=== PATIENT | male | born 1950 | race Caucasian/White ===

== ENCOUNTER 2018-09-03 08:24 | Outpatient (CLI) | payer BC ==
[2018-09-03] MEDS ORDERED: Bupivacaine 0.25% 10 ML SDV ONE (08:31)
[2018-09-03] MEDS ORDERED: methylPREDNISolone Acetate 40 MG/ML SDV ONE (08:31)
[2018-09-03 08:55] VITALS: BP 151/74; PULSE 59
--- NOTE | 2018-09-03 18:30 | ANES ---
DATE OF SERVICE: 09/03/2018 INDICATIONS: Scott is a 68-year-old male patient referred to us by Dr. Mccullough for epidural steroid injection. Scott has already had 3 of these done with 80 mg each, so we decided this time that we would only do 40 mg to try to not to use all of his 360 too much before January when his 1 year is up. Risks and benefits were reviewed with him again. The patient verbalizes understanding and wishes to proceed with epidural steroid injection. TECHNIQUE: The patient was then sat at the edge of the bed. Betadine prep x3 to the lumbar region was done. Sterile drape was placed. 1% lidocaine skin wheal and deep was done a 17- gauge Tuohy needle was inserted at approximately the L4-5. Loss of resistance was achieved. Negative paresthesia, negative heme, and negative CSF were noted. I then proceeded to give 7 mL of sterile normal saline with 2 mL of 0.25% Sensorcaine and 1 mL of 40 mg Depo-Medrol. The Tuohy needle was then flushed and withdrawn. Sterile drape was taken down. Betadine was cleaned off his back, and a Band-Aid was applied to the puncture site for hemostasis. The patient tolerated the procedure without difficulty. Please refer to the nurse's notes for vital signs. After the appropriate amount of time, the patient will be discharged per [facility] protocol. Bunny Nogueira CRNA /[id number]
== END 2018-09-03 09:22 | disposition home or self-care (01) ==
LOC: JP.PAIN 08:24
PROVIDERS: ATTEND Family Medicine
DX: M48.061 Spinal stenosis, lumbar region without neurogenic claudication (principal)
CPT/HCPCS: 62322; J1030; J3490

== ENCOUNTER 2020-11-01 06:34 | Day surgery (SDC) | payer MEDICARE, BC ==
[2020-11-01] MEDS ORDERED: Sodium Chloride 0.9% 1,000 ML IV SCH (07:00)
[2020-11-01] MEDS ORDERED: fentaNYL 100 MCG/2 ML SDV ONE (07:20)
[2020-11-01] MEDS ORDERED: Propofol 200 MG/20 ML SDV ONE (07:20)
[2020-11-01] MEDS ORDERED: Midazolam 1 MG/ML 2 ML SDV ONE (07:20)
[2020-11-01 09:20] VITALS: BP 122/68; PULSE 70
--- NOTE | 2020-11-01 10:14 | OR ---
DATE OF PROCEDURE: 11/01/2020 SURGEON: Ishmael Abernathy MD PROCEDURE: Colonoscopy. FINDINGS: Descending colon polyp approximately 5 mm, completely removed using hot snare wire device. COMPLICATION: None. TRANSPORTATION PLANNING ENGINEER: None. RISKS: Risks, benefits, alternatives, and limitations including, but not limited to infection; bleeding; perforation; false positives; and false negatives were explained to the patient and they wished to proceed. DESCRIPTION OF PROCEDURE: The patient was placed in left lateral decubitus position. Digital rectal exam was performed without abnormality. Scope was introduced and advanced atraumatically to the ileocecal valve. A photo was taken of appendiceal orifice. Scope was brought back to the ascending, transverse, descending colon, and retroflexed. The aforementioned polyp was identified and completely removed as described above. No abnormal bleeding was noted after removal. No other abnormalities. No diverticulosis. No colitis. No old or new blood. The prep was acceptable. Approximately 90% luminal surface could be seen. Greater than 8 minutes was spent removing the scope. The patient tolerated the procedure well. Ishmael Abernathy MD /[id number]
== END 2020-11-01 09:20 | disposition home or self-care (01) ==
LOC: JP.SDS 06:34
PROVIDERS: ATTEND Surgery
DX: Z12.11 Encounter for screening for malignant neoplasm of colon (principal); D12.4 Benign neoplasm of descending colon
CPT/HCPCS: 45385; J2250; J2704; J3010; J7030

== ENCOUNTER 2024-10-16 06:28 | Day surgery (SDC) | payer MEDICARE, BC ==
[2024-10-16] MEDS: Lactated Ringers 1,000 ML IV SCH (07:05)
[2024-10-16] MEDS ORDERED: Propofol 200 MG/20 ML SDV ONE ×2 (07:09→07:37)
[2024-10-16] MEDS ORDERED: Midazolam 1 MG/ML 2 ML SDV ONE (07:10)
[2024-10-16] MEDS ORDERED: fentaNYL 100 MCG/2 ML SDV ONE (07:10)
[2024-10-16 08:49] VITALS: BP 149/72; PULSE 58
== END 2024-10-16 09:00 | disposition home or self-care (01) ==
LOC: JP.SDS 06:28
PROVIDERS: ATTEND Family Medicine
DX: Z12.11 Encounter for screening for malignant neoplasm of colon (principal); D12.2 Benign neoplasm of ascending colon; D12.3 Benign neoplasm of transverse colon; D12.4 Benign neoplasm of descending colon; D12.5 Benign neoplasm of sigmoid colon; K57.30 Diverticulosis of large intestine without perforation or abscess without bleeding; K64.8 Other hemorrhoids; Z80.0 Family history of malignant neoplasm of digestive organs; Z86.0100 Personal history of colon polyps, unspecified
CPT/HCPCS: 00811-QZ; 45380; 45385; 88305; J2250; J2704; J3010; J7120